=== PATIENT | male | born 1945 | race Caucasian/White ===

== ENCOUNTER 2020-11-29 15:29 | Inpatient (IN) | payer MEDICARE ==
[~2020-11-29] VITALS: Ht 167.6 cm; Wt 120.6 kg
[2020-11-29] MEDS ORDERED: INSU300I3 SQ (16:53)
[2020-11-29] MEDS ORDERED: SIMV20TA18 PO (16:53)
[2020-11-29] MEDS ORDERED: SIMV40TA18 PO (16:53)
[2020-11-29] MEDS ORDERED: ASPI-886 PO (16:53)
[2020-11-29] MEDS ORDERED: ACET500T68 PO (16:53)
[2020-11-29] MEDS ORDERED: PIOG15TA42 PO (16:53)
[2020-11-29] MEDS ORDERED: HYDR-2145 PO (16:53)
[2020-11-29] MEDS ORDERED: IRBE300T23 PO (16:53)
[2020-11-29] MEDS ORDERED: METF500S5 PO (16:53)
[2020-11-29] MEDS: IV NORMAL SALINE 1000ML BAG 1,000 ML IV SCH (17:00)
[2020-11-29] MEDS ORDERED: ONDANSETRON PF 4 MG/2 ML VIAL. IVP PRN (17:00)
[2020-11-29] MEDS ORDERED: MORPHINE SULFATE 2 MG/ML INJ. IVP PRN (17:00)
--- NOTE | 2020-11-29 17:00 | NUR ---
admission history completed. right flank pain started Friday along with urinating blood. went to and gave sample. pain pills did not help with pain and was instructed to come to the hospital. medications list obtained and brother Mansoor instructed to take meds home. iv started in the right inner forearm. instructed to use urinal for urinating; that we need to strain urine for possible stone.
[2020-11-29] MEDS ORDERED: MORPHINE SULFATE 10 MG/ML VIAL. IV PRN (17:45)
--- NOTE | 2020-11-29 17:45 | HP ---
ADMIT DATE: 11/29/2020 ADMITTING HISTORY AND PHYSICAL CHIEF COMPLAINT AND HISTORY OF PRESENT ILLNESS: This 75-year-old male is well known to me from followup in the office. The patient was seen first thing in the morning of admission with right back testicular pain associated with nausea and vomiting. He had a little bit of it the night before, then he slept, woke up this morning, now with it being horrible. It was associated with emesis. He had flank tenderness on exam. Dipstick urine showed blood. It was consistent with right renal colic. He was sent with a prescription for Zofran as well as hydrocodone and push fluids. He was unable to keep things down, doing worse and admitted for pain and nausea control as well as hydration in hopes that he will go ahead and pass the stone. PAST MEDICAL HISTORY: Remarkable for diabetes, hypertension, hyperlipidemia, obesity, benign positional vertigo. PAST SURGICAL HISTORY: Remarkable for prior back surgery. MEDICATIONS: Brought with the patient, listed on computer have been addressed as were allergies. SOCIAL HISTORY: He is a smoker, nondrinker, does not use drugs. FAMILY HISTORY: Noncontributory. REVIEW OF SYSTEMS: As mentioned above. PHYSICAL EXAMINATION: GENERAL: He is a well-developed, well-nourished white male who appears very uncomfortable. VITAL SIGNS: Stable. He is afebrile. HEAD, EYES, EARS, NOSE AND THROAT: Remarkable for glasses. NECK: Supple, without lymphadenopathy or thyromegaly. CHEST: Clear to auscultation and percussion. HEART: Regular rate and rhythm without S3, S4 or murmur. ABDOMEN: Soft, nontender, without hepatosplenomegaly or masses. He does have right flank tenderness to percussion. EXTREMITIES: Without cyanosis, clubbing or edema. NEUROLOGIC: He is intact. IMPRESSION: 1. Right renal colic, unable to manage symptomatology as an outpatient. 2. Other problems listed above. PLAN: IV fluids. Pain and nausea control. Hopefully, he will spontaneously pass this. I am going to get a KUB to try to further define the stone. BROOKLYN/ASTRID/TAYLER DR: Nika TID: [id number]
[2020-11-29 18:00] VITALS: BP 165/99
[2020-11-29 19:00] VITALS: BP 177/86
[2020-11-29] MEDS ORDERED: ACETAMINOPHEN 500 MG TABLET PO PRN (19:00)
[2020-11-29] MEDS: SIMVASTATIN 40 MG TABLET. PO SCH (20:39)
[2020-11-29] MEDS: INSULIN GLARGINE SYRINGE. SQ SCH (20:45)
[2020-11-29 23:00] VITALS: BP 184/91
[2020-11-29] MEDS: cloNIDine HCL 0.1 MG TABLET PO PRN (23:26)
[2020-11-29] MEDS: MORPHINE SULFATE 4 MG/ML INJ. IV PRN (23:39)
[2020-11-30] MEDS: IV NORMAL SALINE 1000ML BAG 1,000 ML IV SCH ×3 (00:24→17:07)
[2020-11-30 03:00] VITALS: BP 160/97
[2020-11-30 07:00] VITALS: BP 155/95
[2020-11-30] MEDS: PIOGLITAZONE 15 MG TABLET. PO SCH (08:42)
[2020-11-30] MEDS: ASPIRIN ENTERIC COATED 81 MG TABLET.DR. PO SCH (08:43)
[2020-11-30] MEDS: LOSARTAN POTASSIUM 50 MG TABLET. PO SCH (08:43)
[2020-11-30] MEDS: hydroCHLOROthiazide 25 MG TABLET PO SCH (08:43)
[2020-11-30] MEDS: metFORMIN 500 MG TABLET PO SCH ×2 (08:44→11:38)
[2020-11-30 10:12] LABS: BASO % 0 % (0-3); EOS # 0.1 x10^3/uL (0.0-0.7); EOS % 0 % (0-3); HEMATOCRIT 36.9 % (39.0-53.0); HEMOGLOBIN 12.3 g/dL (13.0-17.5); LYMPH # 1.2 x10^3/uL (1.0-4.8); LYMPH % 10 % (24-48); MEAN CORPUSCULAR HEMOGLOBIN 28 pg (25-35); MEAN CORPUSCULAR HGB CONC 34 g/dL (31-37); MEAN CORPUSCULAR VOLUME 82 fL (79-100); MONO # 1.3 x10^3/uL (0.0-1.1); MONO % 10 % (0-9); NEUT # 10.1 x10^3/uL (1.8-7.7); NEUT % 79 % (31-73); PLATELET COUNT 238 x10^3/uL (140-400); RED BLOOD COUNT 4.48 x10^6/uL (4.30-5.70); RED CELL DISTRIBUTION WIDTH 14.6 % (11.5-14.5); WHITE BLOOD COUNT 12.7 x10^3/uL (4.0-11.0)
[2020-11-30 10:30] LABS: BILIRUBIN,URINE NEGATIVE (NEG); CLARITY,URINE CLEAR; COLOR,URINE YELLOW; NITRITE,URINE NEGATIVE (NEG); PROTEIN,URINE NEGATIVE (NEG-TRACE); UROBILINOGEN,URINE 0.2 mg/dL (0.2 mg/dL)
[2020-11-30 10:31] LABS: ALBUMIN 3.2 g/dL (3.4-5.0); CALCIUM 8.6 mg/dL (8.5-10.1); CREATININE 1.8 mg/dL (0.7-1.3); POTASSIUM 3.7 mmol/L (3.5-5.1); TOTAL BILIRUBIN 0.9 mg/dL (0.2-1.0); TOTAL PROTEIN 6.4 g/dL (6.4-8.2)
--- NOTE | 2020-11-30 10:50 | RAD ---
EXAM: Abdomen, single view. HISTORY: Right renal colic. COMPARISON: None. FINDINGS: Frontal views of the abdomen and pelvis are obtained. There is a prominent air-filled loop of bowel within the lower abdomen to the left of midline, likely the sigmoid colon. There are additio nal nonspecific air-filled loops of bowel throughout the abdomen. There is no evidence of obstruction . There is degenerative change throughout the spine. Evaluation for a renal or ureteral stone is limi anabel due to body habitus and overlying bowel. IMPRESSION: Nonspecific bowel gas pattern, without evidence of obstruction. Limited evaluation for ne phroureterolithiasis due to body habitus and overlying bowel. Electronically signed by: Regina Rios MD (11/30/2020 10:47 AM) [id number]
[2020-11-30 10:56] LABS: BACTERIA,URINE 0 /HPF (0-FEW); RBC,URINE 20-40 /HPF (0-2); WBC,URINE OCC /HPF (0-4)
[2020-11-30 11:00] VITALS: BP 177/92
[2020-11-30] MEDS: POLYETHYLENE GLYCOL 3350 17 GM PACKET. PO PRN (11:37)
[2020-11-30] MEDS: cloNIDine HCL 0.1 MG TABLET PO PRN ×2 (11:58→23:12)
--- NOTE | 2020-11-30 12:10 | NUR ---
SW following. Discussed with RN, pt from home alone, room air. Here for kidney stone. RN advised no SW needs at this time. SW will continue to follow.
[2020-11-30 15:00] VITALS: BP 139/74
[2020-11-30 19:00] VITALS: BP 160/80
[2020-11-30] MEDS: SIMVASTATIN 40 MG TABLET. PO SCH (19:46)
[2020-11-30] MEDS: INSULIN GLARGINE SYRINGE. SQ SCH (19:50)
[2020-11-30 23:00] VITALS: BP 172/65
--- NOTE | 2020-11-30 23:16 | PN ---
DATE: 11/30/2020 SUBJECTIVE: This 75-year-old male remains hospitalized with right renal colic. He feels like the pain is possibly a little better than on admission and not as much in his right testicle. He is very thankful for being in the hospital and having something to control his pain and nausea. OBJECTIVE: VITAL SIGNS: Stable. He is afebrile. GENERAL: He is awake and alert. Brother is visiting. CHEST: Clear. HEART: Regular. ABDOMEN: Benign. He has ongoing right CVA tenderness, although it may not be quite as severe as on admission. LABORATORY DATA: Initial laboratory does show hematuria consistent with the stone. KUB does not show definite stone, but is not good related to his body habitus. His creatinine is 1.8. White count is 12,700 on admission. IMPRESSION: 1. Right renal colic. 2. Renal insufficiency. 3. Hematuria secondary to stone. 4. Diabetes. PLAN: We will hold off on CT scanning with contrast due to the creatinine and repeat it tomorrow morning as I am very certain this is a stone, even though not seen on the KUB, otherwise continued pain. Nausea medicine, stones straining and hopefully he will pass the stone . BROOKLYN/XAVI/SENAIT DR: BROOKLYN/ryann TID: [id number]
[2020-12-01] MEDS: IV NORMAL SALINE 1000ML BAG 1,000 ML IV SCH ×3 (00:21→17:00)
[2020-12-01 02:51] VITALS: BP 169/80
[2020-12-01 07:00] VITALS: BP 189/99
[2020-12-01] MEDS: LOSARTAN POTASSIUM 50 MG TABLET. PO SCH (08:18)
[2020-12-01] MEDS: hydroCHLOROthiazide 25 MG TABLET PO SCH (08:18)
[2020-12-01] MEDS: ASPIRIN ENTERIC COATED 81 MG TABLET.DR. PO SCH (08:18)
[2020-12-01] MEDS: PIOGLITAZONE 15 MG TABLET. PO SCH (08:18)
[2020-12-01] MEDS: cloNIDine HCL 0.1 MG TABLET PO PRN ×2 (08:18→15:21)
[2020-12-01] MEDS: ACETAMINOPHEN 325 MG TABLET. PO PRN ×2 (08:19→15:21)
[2020-12-01] MEDS: POLYETHYLENE GLYCOL 3350 17 GM PACKET. PO PRN (08:20)
[2020-12-01 08:40] LABS: CALCIUM 8.7 mg/dL (8.5-10.1); CREATININE 1.9 mg/dL (0.7-1.3); GFR 34.7; POTASSIUM 3.8 mmol/L (3.5-5.1)
--- NOTE | 2020-12-01 10:22 | NUR ---
SW following. Discussed with RN, pt from home alone, room air, ada diet, ad rut. Pt passing a stone. RN advised no SW needs at this time. SW will continue to follow.
[2020-12-01 10:59] VITALS: BP 102/68
[2020-12-01] MEDS: TAMSULOSIN 0.4 MG CAP.ER.24H. PO SCH (11:14)
[2020-12-01 15:00] VITALS: BP 184/74
--- NOTE | 2020-12-01 18:32 | PN ---
DATE: 12/01/2020 DAILY PROGRESS NOTE LOCATION: He is in room 420. SUBJECTIVE: This 75-year-old male remains hospitalized with right renal colic. He does feel like pain is maybe somewhat better, but still present. He was up urinating every 10 minutes overnight, which is suggestive of the stone nearing the bladder. We have been able to get a CT with contrast due to his creatinine of 1.8. His metformin is on hold. His morning BMP is pending to see if the creatinine would be improved to do picture. So today, I talked with him about adding Flomax to help with possible passage of the stone. He is agreeable. We also discussed his blood pressures, which have been elevated and we will be adding another medicine for the same. OBJECTIVE: VITAL SIGNS: Stable. He is afebrile. Blood pressures are elevated. GENERAL: He is awake and alert. He is uncomfortable. CHEST: Clear. HEART: Regular. ABDOMEN: Benign. He has ongoing right CVA tenderness. IMPRESSION: 1. Right renal colic. 2. Renal insufficiency. 3. Diabetes. 4. Hematuria. 5. Hypertension. PLAN: Add amlodipine 5 mg a day. We will await a.m. BMP to see if we could proceed with CT with contrast. Also, we will add Flomax in hopes of helping him be able to pass the stone. BROOKLYN/JACK/TAYLER DR: BROOKLYN/ryann TID: [id number]
[2020-12-01 19:00] VITALS: BP 152/75
[2020-12-01] MEDS: SIMVASTATIN 40 MG TABLET. PO SCH (21:06)
[2020-12-01] MEDS: MORPHINE SULFATE 4 MG/ML INJ. IV PRN (21:12)
[2020-12-01] MEDS: INSULIN GLARGINE SYRINGE. SQ SCH (21:14)
[2020-12-01 23:00] VITALS: BP 149/78
[2020-12-02] MEDS: IV NORMAL SALINE 1000ML BAG 1,000 ML IV SCH ×2 (01:31→09:26)
[2020-12-02 03:00] VITALS: BP 133/72
[2020-12-02 07:00] VITALS: BP 139/79
[2020-12-02] MEDS: TAMSULOSIN 0.4 MG CAP.ER.24H. PO SCH (09:26)
[2020-12-02] MEDS: ASPIRIN ENTERIC COATED 81 MG TABLET.DR. PO SCH (09:26)
[2020-12-02] MEDS: hydroCHLOROthiazide 25 MG TABLET PO SCH (09:26)
[2020-12-02] MEDS: LOSARTAN POTASSIUM 50 MG TABLET. PO SCH (09:26)
[2020-12-02] MEDS: PIOGLITAZONE 15 MG TABLET. PO SCH (09:26)
[2020-12-02 11:00] VITALS: BP 120/64
[2020-12-02] MEDS ORDERED: AMLO-186 PO (11:57)
--- NOTE | 2020-12-02 12:45 | DS ---
DATE OF DISCHARGE: 12/02/2020 PRIMARY DIAGNOSIS: Right renal colic. ADDITIONAL DIAGNOSES: 1. Diabetes. 2. Chronic kidney disease. 3. Hypertension. 4. Hyperlipidemia. CHIEF COMPLAINT AND HISTORY OF PRESENT ILLNESS: This 75-year-old male seen in the office on the day of admission with right renal colic. He had dipstick testing with blood in his urine and right flank tenderness and testicular pain, all consistent with a kidney stone. He was getting pain medicine and nausea medicine, told to push fluids and sent home, but later in the afternoon, he was unable to keep medicines down or control pain and was admitted for the same. SUMMARY OF STAY: The patient was admitted, kept relatively comfortable. Through the stay, he was given Flomax, hydration, antinausea and pain medicine. Upon seeing him on the , he had the feeling of urge to urinate almost continuously and then sometime later in the day, passed some blood and symptomatology seem to get much better as far as the pain being essentially gone and frequency of urination gone, suggesting he passed a kidney stone. KUB was unrewarding with body habitus predominantly and we did not do. A CT with contrast did reveal chronic kidney disease as well as taking metformin on admission. He was feeling much better, has an appointment this coming and we will follow things from there. DISPOSITION: The patient is discharged to home. DIET: ADA diet. ACTIVITY: As tolerated. FOLLOWUP: Follow up in office on as scheduled. DISCHARGE MEDICATIONS: Will be that of regular home meds plus amlodipine 5 mg a day, which was added during the stay for blood pressure elevation. KENYA DR: Nika TID: [id number]
--- NOTE | 2020-12-02 14:04 | NUR ---
patient discharged home with self care. patient verbalized understanding of discharge instructions.
== END 2020-12-02 14:04 | disposition home or self-care (01) | DRG 694 ==
LOC: 4 NORTH 15:29
PROVIDERS: ADMIT Family Medicine; ATTEND Family Medicine
DX: N23 Unspecified renal colic (principal); Z68.41 Body mass index [BMI] 40.0-44.9, adult; H81.10 Benign paroxysmal vertigo, unspecified ear; R31.9 Hematuria, unspecified; E78.5 Hyperlipidemia, unspecified; F17.200 Nicotine dependence, unspecified, uncomplicated; E66.9 Obesity, unspecified; N18.9 Chronic kidney disease, unspecified; I12.9 Hypertensive chronic kidney disease with stage 1 through stage 4 chronic kidney disease, or unspecified chronic kidney disease; E11.22 Type 2 diabetes mellitus with diabetic chronic kidney disease
CPT/HCPCS: 36415; 74018; 80048; 80053; 81001; 82962; 85025; J1815; J2270; J7030; G0378